=== PATIENT | female | born 1940 | race Caucasian/White ===

== ENCOUNTER 2019-01-15 20:37 | Emergency (ER) | payer OTHER ==
[~2019-01-15] VITALS: Ht 152.4 cm; Wt 98.3 kg
[~2019-01-15 20:37] MED LIST: ACET500C5 PO
[2019-01-15 20:58] VITALS: Ht 152.4 cm; Wt 98.3 kg
[2019-01-15] MEDS ORDERED: ACETAMINOPHEN 500 MG TAB PO STA (21:09)
--- NOTE | 2019-01-15 21:17 | ERD ---
ER Documentation Chief Complaint Chief Complaint S/P fall;lost balance;denies LOC; lac on right head HPI Patient is a 78-year-old female, brought in by daughter, no past medical history, who presents to the ER for concerns of a head injury. Patient which occurred prior to arrival. Per patient, she was on her patio when she tripped while going up the stairs. Patient was wearing sandals and she feels as if her sandal was coming off. To prevent falling, patient states she attempted to grab a nearby pole which fell and hit her in the head. Patient did not lose consc iousness. Patient denies any episodes of vomiting. Daughter denies any acute confusion and excessive sleepiness. Patient denies any dizziness or lightheadedness prior to fall injury. Patient is acting appropriately per patient's daughter. Patient has no neck pain, back pain, abdominal pain, chest pain, shortness of breath. Patient denies any blood thinner use. Patient states she is also having right hand pain. Patient denies any previous fractures or dislocations of the affected extremity. Patient's Tdap is not up-to-date. ROS All systems reviewed and are negative except as per history of present illness. Medications Home Meds Active Scripts Acetaminophen* (Tylophen*) 500 Mg Capsule, 1 CAP PO Q6H PRN for PAIN AND OR ELEVATED TEMP, #20 CAP Prov:KERRIE GARCIA PA-C 01/15/19 Allergies Allergies: Coded Allergies: ibuprofen (Verified Allergy, Mild, HIVES, 08/26/11) PMhx/Soc History of Surgery: Yes (APPENDECTOMY-, GALLBLADDER-2007) Anesthesia Reaction: No Hx Miscellaneous Medical Probl: No (NO MEDICAL PROBLEMS ) Hx Alcohol Use: No Hx Substance Use: No Hx Tobacco Use: No FmHx Family History: No diabetes Physical Exam Vitals Vital Signs Date Temp Pulse Resp B/P (MAP) Pulse Ox O2 O2 Flow FiO2 Time Delivery Rate 01/15/19 98.8 85 18 172/76 95 20:58 (108) Physical Exam GENERAL: Well-developed, well-nourished female. Appears in no acute distress. HEAD: Normocephalic. No deformities or ecchymosis. EYE: Pupils equal, round, and reactive to light. EOMs intact. No conjunctival erythema. No eye discharge. No periorbital ecchymosis or swelling noted bilaterally. ENT: External ear without any masses or tenderness. Auditory canals clear bilaterally. No hemotympanum noted bilaterally. No mastoid ecchymosis or swelling noted bilaterally. TM visualized bilaterally, non-erythematous, non- bulging. Nasal mucosa pink with no discharge. Oropharynx is pink without any tonsillar erythema or exudates. No uvula deviation. No kissing tonsils. NECK: Supple. No meningismus. Normal ROM of the neck. No cervical midline tenderness. LUNG: Clear to auscultation bilaterally. No rhonchi, wheezing, rales or coarse breath sounds. HEART: Regular rate and rhythm. No murmurs, rubs or gallops. BACK: No midline tenderness. EXTREMITIES: Equal pulses bilaterally. No peripheral clubbing, cyanosis or edema. No unilateral leg swelling. NEUROLOGIC: Alert and oriented x3, cooperative. Mood and affect appropriate to situation. Cranial nerves II through XII are grossly intact. Normal speech. Motor exam: 5/5 strength in upper and lower extremities. Sensory exam: Sensation intact to light touch on all four extremities. Cerebellar function exam: Rapid alternating movements intact. No dysmetria on dczggy-pu-rgfp and pkow-oh-lplz test. Steady gait. No pronator drift. Equal clinical resource manager strength noted bilaterally. SKIN: 4 cm C shaped laceration noted to R frontal head. Results 24 hrs Current Medications Medications Dose Sig/Willie Start Time Status Last (Trade) Ordered Route PRN Stop Time Admin Dose Reason Admin 1,000 mg ONCE STAT 01/15/19 DC 01/15/19 Acetaminophen PO 21:09 21:17 (Tylenol 01/15/19 21:11 Tab) Lidocaine 20 ml ONCE ONCE 01/15/19 DC 01/15/19 (Xylocaine SC 22:00 21:39 1% (Mdv) 20 01/15/19 22:01 ml) Procedures/MDM ED COURSE: The patient was stable throughout ED course. I kept the patient and/or family informed of laboratory and diagnostic imaging results throughout the ED course. DIAGNOSTIC IMAGING: Read by radiologist. DIAGNOSTIC IMAGING REPORT Patient: ANURADHA DELGADO : 1940 Age: 78 Sex: F MR #: [id number] DOS: 01/15/192108 Ordering MD: KERRIE GARCIA PA-C Location: FTE Room/Bed: PROCEDURE: XR Right Hand Complete, 3 or More Views CLINICAL INDICATION: Status post fall. Pain. TECHNIQUE: Frontal, lateral and oblique views of the right hand. COMPARISON: None FINDINGS: BONES/JOINTS: No acute fracture demonstrated. Mild degenerative changes of the interphalangeal joints. Mild flexion deformity of the distal interphalangeal joints. No dislocation. SOFT TISSUES: Unremarkable. No radiopaque foreign body. IMPRESSION: No acute fracture demonstrated. RPTAT: [facility] Aimee Simons Physician Plaster Machine Operator Date Time Electronically viewed and signed by Aimee Simons Physician Plaster Machine Operator on 01/15/2019 21:42 [facility]/ CC: KERRIE GARCIA PA-C [id number] Radiology Main Line: [phone] DIAGNOSTIC IMAGING REPORT Patient: ANURADHA DELGADO : 1940 Age: 78 Sex: F MR #: [id number] DOS: 01/15/192108 Ordering MD: KERRIE GARCIA PA-C Location: E Room/Bed: PROCEDURE: CT Head Without Intravenous Contrast CLINICAL INDICATION: Head injury. TECHNIQUE: Axial computed tomography images of the head/brain without intravenous contrast. Sagittal and coronal reformatted images were created and reviewed. CTDIvol (mGy) = 36.07; total DLP (mGy-cm) = 792.79. This CT exam was performed using one or more of the following dose reduction techniques: automated exposure control, adjustment of the mA and/or kV according to patient size, and/or use of iterative reconstruction technique. DICOM images are available. COMPARISON: None FINDINGS: BRAIN: There is mild atrophy and mild microangiopathic white matter disease noted. No intracranial hemorrhage. No acute infarct demonstrated. VENTRICLES: Ventricles are normal in configuration. No hydrocephalus. BONES/JOINTS: Unremarkable. No acute fracture. SOFT TISSUES: Right frontal scalp laceration. SINUSES: Unremarkable as visualized. No acute sinusitis. MASTOID AIR CELLS: Unremarkable as visualized. No mastoid effusion. IMPRESSION: 1. Right frontal scalp laceration. No associated calvarial fracture. 2. No acute intracranial abnormality demonstrated. RPTAT: [facility] Aimee Simons Physician Plaster Machine Operator Date Time Electronically viewed and signed by Aimee Simons Physician Plaster Machine Operator on 01/15/2019 22:05 [facility]/ CC: KERRIE GARCIA PA-C [id number] PROCEDURES: Laceration Repair: The patient was verbally consented prior to procedure. Patient was explained the risks, benefits and alternatives to this procedure. Length: 4 cm Irrigation: Thorough irrigation was performed with normal saline and adequate pressure. Inspection: The wound was thoroughly explored and no foreign bodies, deep tissue, tendon or structural injuries were noted. Anesthesia: 5 cc !% lidocaine Repair: The area was prepared and draped in the usual sterile manner with the wound exposed. [#] sutures were placed with good wound closure and wound approximation. Bleeding was minimal. The patient tolerated the procedure well with no complications. The wound was dressed with bacitracin and sterile gauze. The patient was neurovascularly intact post-procedure. Post-procedural wound care was discussed with the patient. MEDICATIONS GIVEN: Tylenol Patient tolerated medication well with no adverse reactions. Patient reported improvement in pain. MEDICAL DECISION MAKING: This is a 78-year-old female brought in by her daughter, no past medical history, who presents with a head injury s/p fall and right hand pain. Patient denies any loss of consciousness, acute confusion, excessive sleepiness. Patient does not take any blood thinners.. Vital signs were reviewed. Patient was afebrile. Patient was not hypoxic. Patient was well-appearing with no signs of significant injury. CT imaging of the patient's brain was obtained. See formal report above. Right hand series was obtained. No fractures or dislocations noted. Laceration repair was performed as described above. Tdap was given here. At this time the patient presentation is most consistent with scalp laceration status post fall injury. Low suspicion for intraconal hemorrhage, TIA, CVA, electrolyte abnormalities, ACS. Low suspicion for hand fracture dislocation. Strict head injury return precautions were advised. PRESCRIPTIONS: Tylenol DISCHARGE: At this time, patient is stable for discharge and outpatient management. I have instructed the family to monitor the patient closely and return to the ER immediately for any new or worsening symptoms including increased pain, hea dache, nausea, vomiting, weakness, numbness, confusion, excessive sleepiness, seizures or LOC. Patient should follow-up with his/her primary care physician in 1-2 days. The patient and/or family expressed understanding of and agreement with this plan. All questions were answered. Home care instructions were provided. Patients blood pressure was elevated (>120/80) but appears stable without evidence of hypertensive emergency, hypertensive urgency or end-organ failure. I had discussion with the patient about the risks of hypertension. I have advised the patient to follow up with his/her primary care physician for outpatient monitoring and treatment for hypertension in 2-3 days. I have instructed the patient to return to the ER for any new or worsening symptoms including chest pain, shortness of breath, headache, blurred vision, confusion, nausea, vomiting or LOC. Departure Diagnosis: Primary Impression: Acute head injury without loss of consciousness Encounter type: initial encounter Qualified Codes: S09.90XA - Unspecified injury of head, initial encounter Additional Impressions: Fall on same level from tripping as cause of accidental injury Hand pain, right Laceration of head Encounter type: initial encounter Location of open wound of head: unspecified part of head Foreign body presence: without foreign body Qualified Codes: S01.91XA - Laceration without foreign body of unspecified part of head, initial encounter Condition: Fair Patient Instructions: Sprain Hand Referrals: [facility] YOU HAVE RECEIVED A MEDICAL SCREENING EXAM AND THE RESULTS INDICATE THAT YOU DO NOT HAVE A CONDITION THAT REQUIRES URGENT TREATMENT IN THE EMERGENCY DEPARTMENT. FURTHER EVALUATION AND TREATMENT OF YOUR CONDITION CAN WAIT UNTIL YOU ARE SEEN IN YOUR DOCTORS OFFICE WITHIN THE NEXT 1-2 DAYS. IT IS YOUR RESPONSIBILITY TO MAKE AN APPOINTMENT FOR FOLOW-UP CARE. IF YOU HAVE A PRIMARY DOCTOR --you should call your primary doctor and schedule an appointment IF YOU DO NOT HAVE A PRIMARY DOCTOR YOU CAN CALL OUR PHYSICIAN REFERRAL HOTLINE AT IF YOU CAN NOT AFFORD TO SEE A PHYSICIAN YOU CAN CHOSE FROM THE FOLLOWING [facility] [address] [facility]. [facility] [address] [facility] [address] [facility] [address] [facility] [address] [facility]. [facility] [address] [facility]. [facility] YOU HAVE RECEIVED A MEDICAL SCREENING EXAM AND THE RESULTS INDICATE THAT YOU DO NOT HAVE A CONDITION THAT REQUIRES URGENT TREATMENT IN THE EMERGENCY DEPARTMENT. FURTHER EVALUATION AND TREATMENT OF YOUR CONDITION CAN WAIT UNTIL YOU ARE SEEN IN YOUR DOCTORS OFFICE WITHIN THE NEXT 1-2 DAYS. IT IS YOUR RESPONSIBILITY TO MAKE AN APPOINTMENT FOR FOLOW-UP CARE. IF YOU HAVE A PRIMARY DOCTOR --you should call your primary doctor and schedule and appointment IF YOU DO NOT HAVE A PRIMARY DOCTOR YOU CAN CALL OUR PHYSICIAN REFERRAL HOTLINE AT . IF YOU CAN NOT AFFORD TO SEE A PHYSICIAN YOU CAN CHOSE FROM THE FOLLOWING [facility] INSTITUTIONS[facility] [address] [place] [address] [facility] [address] [place] [address] [facility] + [facility] [address] [place] [address] Additional Instructions: Call your primary care doctor TOMORROW for an appointment during the next 1-2 days.See the doctor sooner or return here if your condition worsens before your appointment time. Strict head injury return precautions advised. If you develop any nausea, vomiting, acute confusion, excessive sleepiness or loss of consciousness return to the ER immediately. KERRIE GARCIA PA-C Jan 15, 2019 21:17
[2019-01-15] MEDS ORDERED: LIDOCAINE 1% (MDV) 20 ML INJ SC ONE (22:00)
[2019-01-15] MEDS ORDERED: DIPHTH/TET/ACEL PERTUSS (ADULT) 0.5 ML VIAL IM* ONE (23:00)
== END 2019-01-15 22:52 | disposition home or self-care (01) ==
LOC: FTE 20:37
DX: S01.81XA Laceration without foreign body of other part of head, initial encounter (principal); S69.91XA Unspecified injury of right wrist, hand and finger(s), initial encounter; W20.8XXA Other cause of strike by thrown, projected or falling object, initial encounter; Y92.9 Unspecified place or not applicable; Z23 Encounter for immunization
CPT/HCPCS: 70450; 90471; 90715

== ENCOUNTER 2019-01-17 09:10 | Emergency (ER) | payer OTHER ==
[~2019-01-17] VITALS: Ht 149.9 cm; Wt 97.4 kg
[2019-01-17 09:12] VITALS: Ht 149.9 cm; Wt 97.4 kg
--- NOTE | 2019-01-17 09:44 | ERD ---
ER Documentation Chief Complaint Chief Complaint 2 day wound recheck davin in head, HPI This is a 78-year-old female patient who presents emergency room for 2-day wound and neuro check after head injury. 2 days ago patient pulled on a pole which accidentally struck her in the right parietal region causing laceration. No neuro deficits at time of injury. Patient and daughter report no current concerning neurological symptoms. No nausea, no vomiting, no headache, no dizziness, no blurred vision. Patient with clear speech, steady ambulatory gait, normal mood and affect at time of evaluation.[place] in place, no bleeding noted. ROS All systems reviewed and are negative except as per history of present illness. Medications Home Meds Active Scripts Acetaminophen* (Tylophen*) 500 Mg Capsule, 1 CAP PO Q6H PRN for PAIN AND OR ELEVATED TEMP, #20 CAP Prov:KERRIE GARICA PA-C 01/15/19 Allergies Allergies: Coded Allergies: ibuprofen (Verified Allergy, Mild, HIVES, 08/26/11) PMhx/Soc Medical and Surgical Hx: pt denies Medical Hx History of Surgery: Yes Anesthesia Reaction: No Hx Neurological Disorder: No Hx Respiratory Disorders: No Hx Cardiac Disorders: No Hx Miscellaneous Medical Probl: No Hx Alcohol Use: No Hx Substance Use: No Hx Tobacco Use: No Smoking Status: Never smoker FmHx Family History: No diabetes, No coronary disease, No other Physical Exam Vitals Vital Signs Date Temp Pulse Resp B/P (MAP) Pulse Ox O2 O2 Flow FiO2 Time Delivery Rate 01/17/19 97.9 78 18 144/85 97 09:12 (104) Physical Exam Const: No acute distress Head: No bruising, no hematoma, no crepitus. Dav[place] in place, no drainage, no erythema, no signs of infection. Eyes: Normal Conjunctiva, PERRL, EOMI ENT: Normal External Ears, Nose and Mouth. Neck: Full range of motion. No meningismus. Cervical spinal tenderness. Resp: Clear to auscultation bilaterally, equal chest rise, no wheezing Cardio: Regular rate and rhythm, no murmurs Abd: Soft, non tender, non distended. Normal bowel sounds Skin: No petechiae or rashes Back: No midline or flank tenderness Ext: No cyanosis, or edema Neur: Awake and alert, CN II through XII intact, clear speech, steady gait, sensation intact bilaterally Psych: Normal Mood and Affect Procedures/MDM PROCEDURES/MDM MDM: Is a 78-year-old patient who returns to emergency room for wound and neuro check 2 days post head injury. Patient has well-appearing, denies any neurological symptoms such as headache or nausea. Daughter states that patient has normal and appropriate behavior, clear speech, steady gait. Davin are intact and there is no sign of infection. Patient verbalizes plan to follow-up with her primary care doctor in 7 days for removal of sutures and evaluation of wound. Patient was also noted to have elevated blood pressure with history of the same on prior visits, patient was instructed to discuss this with her primary care physician as she may need medication for hypertension. Traumatic injuries considered include: skull fracture, diffuse axonal injury, cerebral contusion, SDH, traumatic SDH, penetrating injury, spinal cord injury. Based on evaluation, this patients head injury is minor in nature. She is felt to be at very low risk of deterioration and can reliably be observed at home. CT scan of the brain did not reveal intracranial bleed or skull fracture. Long discussion had with and and daughter rewgarding signs and symptoms that wou ld be concerning for injury in evolution. They were warned to return to ER immediately for any alteration in behavior, speech, motor movement, vomiting or any concerns. DISPOSITION and PLAN: RX: None The patient has been discharge home to follow-up with community physician. Departure Diagnosis: Primary Impression: Elevated blood pressure reading Additional Impressions: Encounter for wound re-check Elevated blood pressure affecting in first trimester... Head injury Encounter type: subsequent encounter Qualified Codes: S09.90XD - Unspecified injury of head, subsequent encounter Condition: Stable Patient Instructions: Eating Heart-Healthy Food: Using the DASH Plan, High Blood Pressure (Hypertension), Wound Check, Lac F/U (No Infection) Additional Instructions: Thank you very much for allowing us to participate in your care. Your health and safety is our top priority at [facility]. Call your primary care doctor TOMORROW for an appointment during the next 2-4 days and bring all the information and medications prescribed. Have prescriptions filled and follow precisely the directions on the label. If the symptoms get worse and your provider is unavailable, return to the Emergency Department immediately. FOLLOW-UP WITH YOUR PRIMARY CARE PHYSICIAN IN 7 DAYS TO HAVE SUTURES REMOVED TALK TO YOUR PRIMARY CARE PHYSICIAN ABOUT YOUR BLOOD PRESSURE AND POSSIBLE NEED FOR MEDICATIONS USE TYLENOL NEEDED FOR PAIN RETURN TO THE EMERGENCY ROOM IMMEDIATELY WITH SIGNS AND SYMPTOMS THAT WE DISCUSSED SUCH VOMITING, CONFUSION, INCREASED FATIGUE, SEVERE HEADACHE JULIANNE BOSE NP Jan 17, 2019 09:44
[2019-01-17 10:12] VITALS: BP 135/74; PULSE 68; RESP 18
== END 2019-01-17 10:04 | disposition home or self-care (01) ==
LOC: FTE 09:10
DX: R03.0 Elevated blood-pressure reading, without diagnosis of hypertension (principal); S09.90XD Unspecified injury of head, subsequent encounter; W22.8XXD Striking against or struck by other objects, subsequent encounter; Z48.00 Encounter for change or removal of nonsurgical wound dressing
CPT/HCPCS: 99281

== ENCOUNTER 2019-01-22 15:12 | Emergency (ER) | payer OTHER ==
[~2019-01-22] VITALS: Ht 152.4 cm; Wt 97.3 kg
[2019-01-22 15:17] VITALS: Ht 152.4 cm; Wt 97.3 kg
--- NOTE | 2019-01-22 16:12 | ERD ---
ER Documentation Chief Complaint Chief Complaint staple removal on head s/p fall x1 week HPI 78-year-old female presented to ED for staple removal. Patient was seen in the ED last week for a slip and fall and received 10 khang on the right posterior aspect of her parietal lobe. Patient states that she is feeling much better since the initial incident. Patient denies any confusion worsening head pain bleeding or neck stiffness. Patient states that she has no pain at this point. Patient stated she had a trip and fall did not pass out. ROS All systems reviewed and are negative except as per history of present illness. Medications Home Meds Active Scripts Acetaminophen* (Tylophen*) 500 Mg Capsule, 1 CAP PO Q6H PRN for PAIN AND OR ELEVATED TEMP, #20 CAP Prov:SOLO RAM PA-C 01/22/19 Acetaminophen* (Tylophen*) 500 Mg Capsule, 1 CAP PO Q6H PRN for PAIN AND OR ELEVATED TEMP, #20 CAP Prov:KERRIE GARCIA PA-C 01/15/19 Allergies Allergies: Coded Allergies: ibuprofen (Verified Allergy, Mild, HIVES, 01/22/19) PMhx/Soc History of Surgery: Yes (Nelly,appendectomy) Anesthesia Reaction: No Hx Neurological Disorder: No Hx Respiratory Disorders: No Hx Cardiac Disorders: No Hx Psychiatric Problems: No Hx Miscellaneous Medical Probl: No Hx Alcohol Use: No Hx Substance Use: No Hx Tobacco Use: No Smoking Status: Never smoker FmHx Family History: No diabetes, No coronary disease, No other Physical Exam Vitals Vital Signs Date Temp Pulse Resp B/P (MAP) Pulse Ox O2 O2 Flow FiO2 Time Delivery Rate 01/22/19 98.4 78 18 178/75 97 15:17 (109) Physical Exam GENERAL: The patient is well-appearing, well-nourished, in no acute distress CHEST: Clear to auscultation bilaterally. There are no rales, wheezes or rhonchi. HEART: Regular rate and rhythm. No murmurs, clicks, rubs or gallops. SKIN: 10 khang located right posterior aspect of the parietal lobe. The wound appears to be healing nice there is no drainage or signs of skin infection. Procedures/MDM ED course: The patient was stable throughout the ED course. The patient and/or family informed of laboratory and diagnostic imaging results throughout the ED course. Procedures: Staple Removal by me: Solo Neal Khang removed with staple remover without incident. Wound shows no evidence of infection, foreign body, neurologic injury, vascular injury, open joint or tendon laceration. Patient to follow up PRN. Medical decision makin-year-old female presented to ED for staple removed. 10 khang were removed from the right posterior parietal lobe. The wound appears to be healing nice there is no discharge and no pain on palpation. Skin is not erythematous and is not painful to palpation. At this time I have low suspicion for skull fracture, abscess, cellulitis. Advised the patient to follow-up with her primary care doctor within next 1 to 2 days. I advised the patient symptoms worsen return to the ED immediately. All questions were answered upon discharge and the patient is agreement treatment plan. Prescription for home: Acetaminophen I have discussed with the patient proper use and common side effects to expert with the medication . I advised the patient/family to speak with the pharmacist dispensing the medication to be advised of any potential drug interactions with other medication or supplements they may be taking. Discharge: At this time, patient is stable for discharge and outpatient management. I have instructed the patient to follow-up with his\her primary care physician in 1 to 2 days. I have discussed with the patient the possibility of needing to see a specialist for further work-up and imaging studies if symptoms persist. I have instructed the patient to promptly return to the ER for any new or worsening symptoms including increased pain, fever, nausea, vomiting, weakness or LOC. The patient and\or family expressed understanding of and agreement with this plan. All questions were answered. Home care instructions were provided. Disclaimer: Inadvertent spelling and grammatical errors are likely due to EHR\dictation software use and do not reflect on the overall quality of patient care. Also, please note that the electronic time recorded on the note does not necessarily reflect the actual time of the patient encounter. Departure Diagnosis: Primary Impression: Encounter for removal of sutures Condition: Stable Patient Instructions: Staple Removal, No Complication Referrals: NANCY VITAL MD (PCP) [facility] YOU HAVE RECEIVED A MEDICAL SCREENING EXAM AND THE RESULTS INDICATE THAT YOU DO NOT HAVE A CONDITION THAT REQUIRES URGENT TREATMENT IN THE EMERGENCY DEPARTMENT. FURTHER EVALUATION AND TREATMENT OF YOUR CONDITION CAN WAIT UNTIL YOU ARE SEEN IN YOUR DOCTORS OFFICE WITHIN THE NEXT 1-2 DAYS. IT IS YOUR RESPONSIBILITY TO MAKE AN APPOINTMENT FOR DARNELL-UP CARE. IF YOU HAVE A PRIMARY DOCTOR --you should call your primary doctor and schedule an appointment IF YOU DO NOT HAVE A PRIMARY DOCTOR YOU CAN CALL OUR PHYSICIAN REFERRAL HOTLINE AT IF YOU CAN NOT AFFORD TO SEE A PHYSICIAN YOU CAN CHOSE FROM THE FOLLOWING [facility] [address] [facility] [address] [facility] [address] [facility] [address] [facility] [address] [facility]. [facility] [address] [facility]. [facility] YOU HAVE RECEIVED A MEDICAL SCREENING EXAM AND THE RESULTS INDICATE THAT YOU DO NOT HAVE A CONDITION THAT REQUIRES URGENT TREATMENT IN THE EMERGENCY DEPARTMENT. FURTHER EVALUATION AND TREATMENT OF YOUR CONDITION CAN WAIT UNTIL YOU ARE SEEN IN YOUR DOCTORS OFFICE WITHIN THE NEXT 1-2 DAYS. IT IS YOUR RESPONSIBILITY TO MAKE AN APPOINTMENT FOR FOLOW-UP CARE. IF YOU HAVE A PRIMARY DOCTOR --you should call your primary doctor and schedule and appointment IF YOU DO NOT HAVE A PRIMARY DOCTOR YOU CAN CALL OUR PHYSICIAN REFERRAL HOTLINE AT . IF YOU CAN NOT AFFORD TO SEE A PHYSICIAN YOU CAN CHOSE FROM THE FOLLOWING [facility] INSTITUTIONS: [facility] [address] [place] [address] [facility] [address] [place] [address] [facility] + [facility] [address] [place] [address] Additional Instructions: Call your primary care doctor TOMORROW for an appointment during the next 1-2 days.See the doctor sooner or return here if your condition worsens before your appointment time. SOLO RAM PA-C Jan 22, 2019 16:12
[2019-01-22 16:50] VITALS: BP 156/78; PULSE 72; RESP 18
== END 2019-01-22 16:57 | disposition home or self-care (01) ==
LOC: FTE 15:12
DX: Z48.02 Encounter for removal of sutures (principal)
CPT/HCPCS: 99281

== ENCOUNTER 2019-04-01 03:15 | Inpatient (IN) | payer OTHER ==
[~2019-04-01] VITALS: Ht 154.9 cm; Wt 100.0 kg
[~2019-04-01 03:15] MED LIST changes: +DIPH25CA47 PO; +OMEP20CA17 PO
[2019-04-01] MEDS ORDERED: ONDANSETRON 4 MG INJ IV STA (03:40)
[2019-04-01] MEDS ORDERED: LOPERAMIDE 2 MG CAP PO ONE (04:00)
[2019-04-01] MEDS ORDERED: SOD CHLORIDE 0.9% 500 ML IV ONE (04:00)
[2019-04-01] MEDS ORDERED: PIPER-TAZO 3.375 GM IV (PMX) 100 ML IVPB ONE (06:00)
[2019-04-01] MEDS ORDERED: ACETAMINOPHEN 500 MG TAB PO PRN (08:00)
[2019-04-01] MEDS ORDERED: DIPHENHYDRAMINE 25 MG CAP PO PRN (08:00)
[2019-04-01 08:30] VITALS: BP 144/65; PULSE 82; RESP 18
[2019-04-01] MEDS: PANTOPRAZOLE (EC) 40 MG TAB PO SCH ×2 (10:26→18:35)
[2019-04-01 11:37] VITALS: Ht 154.9 cm; Wt 100.0 kg
[2019-04-01] MEDS: POTASSIUM CHLORIDE 10 MEQ in SOD CHLORIDE 0.9% 1,000 ML IV SCH ×2 (11:47→23:34)
[2019-04-01] MEDS: PIPER-TAZO 3.375 GM IV (PMX) 100 ML IVPB SCH ×2 (14:00→22:46)
[2019-04-01 15:38] VITALS: BP 102/61; PULSE 85; RESP 18
[2019-04-01 19:30] VITALS: BP 119/59; PULSE 99; RESP 18
[2019-04-01] MEDS: ACETAMINOPHEN 325 MG TAB PO PRN (20:49)
[2019-04-01] MEDS ORDERED: HARD FAT/PHENYLEPHRINE SUPP PR PRN (21:00)
[2019-04-02] MEDS: POTASSIUM CHLORIDE 10 MEQ in SOD CHLORIDE 0.9% 1,000 ML IV SCH ×3 (00:33→19:01)
[2019-04-02 02:10] VITALS: BP 119/58; PULSE 92; RESP 18
[2019-04-02] MEDS: PIPER-TAZO 3.375 GM IV (PMX) 100 ML IVPB SCH ×3 (05:39→21:10)
[2019-04-02] MEDS: PANTOPRAZOLE (EC) 40 MG TAB PO SCH ×2 (05:41→18:41)
[2019-04-02 08:47] VITALS: BP 129/60; PULSE 72; RESP 18
[2019-04-02] MEDS: ACETAMINOPHEN 325 MG TAB PO PRN ×2 (10:21→22:47)
[2019-04-02] MEDS: ONDANSETRON 4 MG INJ IV PRN (11:13)
[2019-04-02] MEDS ORDERED: SOD CHLORIDE 0.9% 250 ML IV* ONE (12:14)
[2019-04-02] MEDS ORDERED: FUROSEMIDE 20 MG INJ IV ONE (13:00)
[2019-04-02] MEDS: LORATADINE 10 MG TAB PO SCH (16:51)
[2019-04-02] MEDS: FLUTICASONE 0.05% 16 GM NAS SPRAY NASAL SCH (17:56)
[2019-04-02 19:25] VITALS: BP 117/69; PULSE 98; RESP 20
[2019-04-03] MEDS: POTASSIUM CHLORIDE 10 MEQ in SOD CHLORIDE 0.9% 1,000 ML IV SCH ×2 (00:42→15:26)
[2019-04-03 02:05] VITALS: BP 108/55; PULSE 94; RESP 20
[2019-04-03 02:45] VITALS: BP 96/52; PULSE 94; RESP 20
[2019-04-03] MEDS: PIPER-TAZO 3.375 GM IV (PMX) 100 ML IVPB SCH ×3 (05:08→20:59)
[2019-04-03] MEDS: PANTOPRAZOLE (EC) 40 MG TAB PO SCH ×2 (06:43→17:55)
[2019-04-03 08:04] VITALS: BP 129/61; PULSE 85; RESP 18
[2019-04-03] MEDS: LORATADINE 10 MG TAB PO SCH (08:23)
[2019-04-03] MEDS: FLUTICASONE 0.05% 16 GM NAS SPRAY NASAL SCH ×2 (09:00→20:57)
[2019-04-03] MEDS ORDERED: BISACODYL (EC) 5 MG TAB PO ONE ×2 (10:00→16:00)
[2019-04-03] MEDS ORDERED: MAGNESIUM CITRATE 300 ML BTL PO ONE (11:00)
[2019-04-03] MEDS ORDERED: POLYETHYLENE GLYCOL 3350 119 GM POWDER PO ONE ×2 (12:00→15:00)
[2019-04-03 14:00] VITALS: BP 120/56; PULSE 91; RESP 18
[2019-04-03] MEDS: ONDANSETRON 4 MG INJ IV PRN (16:02)
[2019-04-03 19:51] VITALS: BP 125/60; PULSE 93; RESP 22
[2019-04-04] VITALS (16 sets, daily range): BP systolic 97–138; BP diastolic 46–67; PULSE 70–86; RESP 15–20
[2019-04-04] MEDS: POTASSIUM CHLORIDE 10 MEQ in SOD CHLORIDE 0.9% 1,000 ML IV SCH (02:00)
[2019-04-04] MEDS: PIPER-TAZO 3.375 GM IV (PMX) 100 ML IVPB SCH ×2 (05:00→13:33)
[2019-04-04] MEDS: PANTOPRAZOLE (EC) 40 MG TAB PO SCH (05:00)
[2019-04-04] MEDS: FLUTICASONE 0.05% 16 GM NAS SPRAY NASAL SCH ×2 (08:40→20:32)
[2019-04-04] MEDS: LORATADINE 10 MG TAB PO SCH (08:40)
[2019-04-04] MEDS ORDERED: ACETAMINOPHEN 1000MG/100ML IV 100 ML IVPB PRN (11:45)
[2019-04-04] MEDS ORDERED: LIDOCAINE 2% (SDV) 5 ML INJ ONE (14:03)
[2019-04-04] MEDS ORDERED: PROPOFOL 200 MG INJ ONE (14:03)
[2019-04-04] MEDS ORDERED: PROPOFOL 40 ML ONE (14:03)
[2019-04-04] MEDS ORDERED: FENTAnyl 50 MCG/ML VIAL ONE (14:03)
[2019-04-04] MEDS: SOD CHLORIDE 0.9% 1,000 ML IV SCH (20:31)
[2019-04-05] MEDS: PANTOPRAZOLE (EC) 40 MG TAB PO SCH ×3 (05:41→17:43)
[2019-04-05] MEDS: SOD CHLORIDE 0.9% 1,000 ML IV SCH (06:46)
[2019-04-05 07:44] VITALS: BP_SYST 109; BP_SYST 129; BP_DIAS 60; BP_DIAS 69; PULSE 81; RESP 18
[2019-04-05] MEDS ORDERED: FUROSEMIDE 20 MG INJ IV ONE (10:00)
[2019-04-05] MEDS ORDERED: ALBUTEROL/IPRATROPIUM (NEB) 3 ML AMP HHN PRN (11:00)
[2019-04-05] MEDS: LORATADINE 10 MG TAB PO SCH (12:01)
[2019-04-05] MEDS: FLUTICASONE 0.05% 16 GM NAS SPRAY NASAL SCH (12:02)
[2019-04-05 14:14] VITALS: BP 135/61; PULSE 86; RESP 18
== END 2019-04-05 19:16 | disposition home or self-care (01) | DRG 391 ==
LOC: E/R 03:15 → MS1 05:53
PROVIDERS: ADMIT Internal Medicine; ATTEND Internal Medicine
PROC: 30233N1 Transfusion of Nonautologous Red Blood Cells into Peripheral Vein, Percutaneous Approach (ICD-10-PCS; 2019-04-02)
PROC: 0DB68ZX Excision of Stomach, Via Natural or Artificial Opening Endoscopic, Diagnostic (ICD-10-PCS; principal; 2019-04-04 14:00)
PROC: 0DBE8ZX Excision of Large Intestine, Via Natural or Artificial Opening Endoscopic, Diagnostic (ICD-10-PCS; 2019-04-04 14:00)
DX: K52.9 Noninfective gastroenteritis and colitis, unspecified (principal); K57.31 Diverticulosis of large intestine without perforation or abscess with bleeding; Z68.41 Body mass index [BMI] 40.0-44.9, adult; D62 Acute posthemorrhagic anemia; R09.02 Hypoxemia; E66.01 Morbid (severe) obesity due to excess calories; K44.9 Diaphragmatic hernia without obstruction or gangrene; K31.9 Disease of stomach and duodenum, unspecified; D17.5 Benign lipomatous neoplasm of intra-abdominal organs; K64.8 Other hemorrhoids
CPT/HCPCS: 36415; 36430; 71045; 74176; 80048; 80053; 80061; 80076; 81001; 82270; 83690; 85018; 85025; 86674; 86850; 86900; 86901; 86920; 87045; 87086; 88305; 88312; 96374; J0131; J1940; J2405; J2543; J3010; J3480; J7030; J7040; P9016